=== PATIENT | female | born 2000 | race Two or more races ===

== ENCOUNTER 2023-09-06 06:16 | Inpatient (IN) ==
[2023-09-06] MEDS ORDERED: D5 1/2 NS 1,000 ML 1,000 ML IV ONE ×2 (06:40→16:23)
[2023-09-06] MEDS ORDERED: NUBAIN INJ 20 MG AMP IVP PRN (06:55)
[2023-09-06] MEDS ORDERED: OXYTOCIN 20 UNIT/1,000 ML-NS 20 UNIT/1,000 ML PLAST..BAG IV PRN (06:55)
[2023-09-06] MEDS ORDERED: STADOL INJ IVP PRN (06:55)
[2023-09-06] MEDS ORDERED: PITOCIN IVP ONE (06:55)
[2023-09-06] MEDS ORDERED: REGLAN INJ 10 MG VIAL IVP PRN (06:55)
[2023-09-06] MEDS ORDERED: ZOFRAN INJ 4 MG VIAL IVP PRN (06:55)
[2023-09-06] MEDS: D5 1/2 NS 1,000 ML 1,000 ML IV SCH ×2 (07:00→16:30)
--- NOTE | 2023-09-06 07:07 | DR.OB ---
OB QUICK NOTE Assessment/Plan (1) Active labor at term: Assessment/Plan: L&D 09/06/23 at 7:00am S-No complaint. O-Afebrile,VSS VRC=[id number] with good LTV, +accel, no decel. CTX=mild uterine irritability CVX=2cm/50%/-1/VTX AROM with clear fluid. IUPC and FSE placed. A-IUP at 39 4/7 weeks for induction P-Begin pitocin induction Anticipate
[2023-09-06] MEDS ORDERED: NUBAIN INJ 200 MG VIAL MULTIDOSE ONE (08:54)
[2023-09-06] MEDS ORDERED: LR 1,000 ML IV 1,000 ML IV ONE (09:32)
[2023-09-06] MEDS ORDERED: FENTANYL VIAL INJ 100 mcg ONE ×3 (09:37→18:22)
[2023-09-06] MEDS ORDERED: NAROPIN EPIDURAL 0.2% 100 ML ONE ×2 (09:37→18:22)
[2023-09-06] MEDS ORDERED: LIDOCAINE 2%-EPI 1:200,000 ONE (10:53)
--- NOTE | 2023-09-06 11:52 | DR.OB ---
OB QUICK NOTE Assessment/Plan (1) Active labor at term: Assessment/Plan: L&D 09/06/23 at 11:45am Pitocin=8mu/min. S-No complaint. s/p epidural. O-Afebrile,VSS IOS=[id number] with good LTV, +accel, no decel. CTX=q 1 1/2 to 2 min., about 50-60mmHg CVX=5cm/80%/-1/VTX A-IUP at 39 4/7 weeks for induction P-Cont. pitocin induction Anticipate
[2023-09-06] MEDS ORDERED: PITOCIN ONE (12:47)
--- NOTE | 2023-09-06 16:17 | DR.OB ---
OB QUICK NOTE Assessment/Plan (1) Active labor at term: Assessment/Plan: L&D 09/06/23 at 4:15pm Pitocin=8mu/min. S-No complaint. O-Afebrile,VSS BXH=884 with good LTV, +accel, no decel. CTX=q 1 1/2 min., about 50-60mmHg CVX=7cm/80%/-1 A-IUP at 39 4/7 weeks for induction P-Continue pitocin induction Anticipate
[2023-09-06] MEDS ORDERED: PRECEDEX INJ VIAL IVP ONE (18:12)
[2023-09-06] MEDS ORDERED: MOTRIN TAB 800 MG PO PRN ×2 (19:36→21:12)
--- NOTE | 2023-09-06 19:36 | DR.OB ---
OB QUICK NOTE Assessment/Plan (1) Active labor at term: Assessment/Plan: Delivery Note [facility] 09/06/23 at 7:24pm Patient complete and pushing. Head delivered over intact perineum. No nuchal cord. Nose and mouth bulb suctioned. Body delivered over intact perineum. Cord clamped x 2 and cut. handed to attendant. Cord sent for gases. Placenta delivered spontaneously / intact / 3 vessel cord. No CVX / vaginal / perineal tears noted. Viable female delivered by , VTX/OA, wt=6'11" and 8/9, stable to NBN. Mother stable to RR. [id number]=[id number].
[2023-09-06] MEDS: OXYTOCIN 20 UNIT/1,000 ML-NS 20 UNIT/1,000 ML PLAST..BAG IV SCH (20:07)
[2023-09-06] MEDS ORDERED: DERMOPLAST PAIN RELIEF SPRAY TOP PRN (21:12)
[2023-09-06] MEDS ORDERED: ADACEL or BOOSTRIX TDaP VACCINE IM ONE (21:12)
[2023-09-06] MEDS ORDERED: MILK OF MAGNESIA PO PRN (21:12)
[2023-09-06] MEDS ORDERED: AMBIEN PO PRN (21:12)
[2023-09-07 04:48] LABS: HEMATOCRIT 31.2 % (36.0-47.0)
[2023-09-07] MEDS: OXYTOCIN 20 UNIT/1,000 ML-NS 20 UNIT/1,000 ML PLAST..BAG IV SCH ×2 (05:02→23:34)
[2023-09-07 06:20] VITALS: RESP 20
[2023-09-07] MEDS: PRENATAL PLUS PO SCH (08:53)
[2023-09-08] MEDS: PRENATAL PLUS PO SCH (08:08)
[2023-09-08 11:17] VITALS: BP 114/69; PULSE 72; TEMP 97.4; O2SAT 95
== END 2023-09-08 10:40 | disposition home or self-care (01) | DRG 807 ==
LOC: LD 06:16 → MED/SURG 19:37
PROVIDERS: ADMIT Specialist; ATTEND Specialist